=== PATIENT | male | born 1970 | race Caucasian/White ===

== ENCOUNTER → 2016-09-17 | Outpatient (CLI) | payer BC ==
[~2016-09-17] MED LIST: 'TENORMIN50 MG PO; ALLEGRA-D 12 HO1 TER PO; AMOXICILLIN500 M1 PO; ANAPROX DS550 MG PO; CLARITIN10 MG PO; CLINDAMYCIN HC300 MG PO; DAYPRO600 M1 PO; FLONASE ALLERG9.9 ML NAS; KEFLEX500 MG PO; LOSARTAN POTAS100 M1 PO; MEDROL DOSEPAK4 MG PO; MOTRIN800 MG PO; NORVASC10 MG PO; ORPHENADRINE C100 M1 PO; PERCOCET 325 MG1 TA2 PO; PREDNICOT20 MG PO; ROBAXIN750 MG PO; ROBITUSSIN AC 110 ML PO; TYLENOL W/CODEI1 TA2 PO; ULTRAM ER200 MG PO; ULTRAM50 MG PO; VITAMIN D32000 I1 PO; ZITHROMAX Z PA250 MG PO; ZITHROMAX250 MG PO
[2016-09-17 14:00] LABS: BASO # 0.1 10*3/uL (0.0-0.1); BASO % 1.2 % (0.0-1.0); EOS # 0.2 10*3/uL (0.0-0.4); EOS % 2.3 % (1.0-4.0); HEMATOCRIT 43.5 % (42.0-52.0); HEMOGLOBIN 15.1 g/dl (14.0-18.0); IG # 0.1 10*3/uL (0.0-0.1); LYMPH # 3.3 10*3/uL (1.3-4.4); LYMPH % 31.2 % (27.0-41.0); MEAN CELL VOLUME 88.1 fl (80.0-94.0); MEAN CORPUSCULAR HGB 30.6 pg (27.0-31.0); MEAN CORPUSCULAR HGB CONC 34.7 g/dl (33.0-37.0); MEAN PLATELET VOLUME 9.9 fl (9.6-12.3); MONO # 1.1 10*3/uL (0.1-1.0); MONO % 10.7 % (3.0-9.0); NEUT # 5.7 10*3/uL (2.3-7.9); NEUT % 53.7 % (47.0-73.0); PLATELET COUNT AUTOMATED 298 10*3/uL (130-400); RED BLOOD COUNT 4.94 10*6/uL (4.50-5.90); RED CELL DISTRI WIDTH 12.1 % (0-14.5); WHITE BLOOD COUNT 10.6 10*3/uL (4.8-10.8)
[2016-09-17 14:23] LABS: ALBUMIN 4.1 gm/dl (3.1-4.5); ALKALINE PHOSPHATASE 78 U/L (45-117); BILIRUBIN, TOTAL 0.4 mg/dl (0.2-1.0); BUN 9 mg/dl (7-24); CARBON DIOXIDE 30 mmol/L (21-32); CHLORIDE 103 mmol/L (98-107); CHOLESTEROL 124 mg/dL (<200); EST GLOM FILT AFRICAN AMERICAN > 60 ml/min; GLUCOSE 108 mg/dL (65-99); HDL CHOLESTEROL 40 mg/dl (40-60); LDL CHOLESTEROL 37 mg/dL (9-159); SGOT/AST 27 IU/L (3-35); SGPT/ALT 48 U/L (12-78); SODIUM 140 mmol/L (136-145); TOTAL PROTEIN 7.5 gm/dL (6.4-8.2); TRIGLYCERIDES 235 mg/dl (<150); VLDL CHOLESTEROL 47 mg/dL (6-40)
== END | disposition home or self-care (01) ==
LOC: LAB 13:38
PROVIDERS: Nurse Practitioner Family
DX: J44.9 Chronic obstructive pulmonary disease, unspecified (principal); I10 Essential (primary) hypertension; E78.2 Mixed hyperlipidemia

== ENCOUNTER 2017-04-22 16:21 | Emergency (ER) | payer BC ==
[~2017-04-22] VITALS: Ht 177.8 cm; Wt 113.4 kg
[2017-04-22 17:27] LABS: HEMATOCRIT 42.9 % (42.0-52.0); HEMOGLOBIN 15.2 g/dl (14.0-18.0); MEAN CELL VOLUME 88.3 fl (80.0-94.0); MEAN CORPUSCULAR HGB 31.3 pg (27.0-31.0); MEAN CORPUSCULAR HGB CONC 35.4 g/dl (33.0-37.0); MEAN PLATELET VOLUME 9.5 fl (9.6-12.3); PLATELET COUNT AUTOMATED 315 10*3/uL (130-400); RED BLOOD COUNT 4.86 10*6/uL (4.50-5.90); RED CELL DISTRI WIDTH 12.6 % (0-14.5)
[2017-04-22 17:43] LABS: ALBUMIN 3.7 gm/dl (3.1-4.5); ALKALINE PHOSPHATASE 87 U/L (45-117); BUN 13 mg/dl (7-24); CHLORIDE 100 mmol/L (98-107); CREATININE 0.92 mg/dL (0.70-1.30); POTASSIUM 3.7 mmol/L (3.5-5.1); SGOT/AST 30 IU/L (3-35); SGPT/ALT 63 U/L (12-78); SODIUM 138 mmol/L (136-145)
[2017-04-22 17:45] LABS: TROPONIN I < 0.015 ng/ml (<0.045)
[2017-04-22 18:03] LABS: TOTAL CELLS COUNTED 100 #CELLS
[2017-04-22 18:04] LABS: PLATELET SUFFICIENCY NORMAL (NORMAL)
[2017-04-22] MEDS ORDERED: PREDNISONE10 MG PO (18:08)
[2017-04-22] MEDS ORDERED: LEVOFLOXACIN500 MG PO (18:08)
== END 2017-04-22 18:12 | disposition home or self-care (01) ==
LOC: ED 16:21
PROVIDERS: Physician Assistant
DX: J40 Bronchitis, not specified as acute or chronic (principal); F17.200 Nicotine dependence, unspecified, uncomplicated; Z79.899 Other long term (current) drug therapy

== ENCOUNTER 2017-05-11 21:06 | Emergency (ER) | payer BC ==
[~2017-05-11] VITALS: Wt 113.4 kg
[~2017-05-11 21:06] MED LIST changes: +LEVOFLOXACIN500 MG PO; +PREDNISONE10 MG PO
[2017-05-11] MEDS ORDERED: AUGMENTIN 875-875 MG PO (22:40)
[2017-05-11] MEDS ORDERED: FLONASE ALLERG9.9 ML NAS (22:41)
== END 2017-05-11 22:44 | disposition home or self-care (01) ==
LOC: ED 21:06
DX: H65.93 Unspecified nonsuppurative otitis media, bilateral (principal); J06.9 Acute upper respiratory infection, unspecified; G89.29 Other chronic pain; F17.200 Nicotine dependence, unspecified, uncomplicated; Z90.49 Acquired absence of other specified parts of digestive tract; Z79.899 Other long term (current) drug therapy

== ENCOUNTER 2017-05-21 13:01 | Emergency (ER) | payer BC ==
[~2017-05-21] VITALS: Ht 177.8 cm; Wt 113.4 kg
[~2017-05-21 13:01] MED LIST changes: +AUGMENTIN 875-875 MG PO
[2017-05-21 13:55] LABS: BASO # 0.1 10*3/uL (0.0-0.1); BASO % 1.1 % (0.0-1.0); EOS # 0.3 10*3/uL (0.0-0.4); EOS % 2.9 % (1.0-4.0); HEMATOCRIT 42.7 % (42.0-52.0); LYMPH % 32.9 % (27.0-41.0); MEAN CELL VOLUME 87.1 fl (80.0-94.0); MEAN CORPUSCULAR HGB 30.6 pg (27.0-31.0); MEAN CORPUSCULAR HGB CONC 35.1 g/dl (33.0-37.0); MEAN PLATELET VOLUME 9.6 fl (9.6-12.3); MONO # 1.2 10*3/uL (0.1-1.0); MONO % 12.9 % (3.0-9.0); NEUT # 4.5 10*3/uL (2.3-7.9); NEUT % 49.2 % (47.0-73.0); PLATELET COUNT AUTOMATED 301 10*3/uL (130-400); RED CELL DISTRI WIDTH 12.3 % (0-14.5); WHITE BLOOD COUNT 9.1 10*3/uL (4.8-10.8)
[2017-05-21 14:10] LABS: ALBUMIN 3.9 gm/dl (3.1-4.5); ALKALINE PHOSPHATASE 81 U/L (45-117); BUN 10 mg/dl (7-24); CHLORIDE 103 mmol/L (98-107); CREATININE 0.84 mg/dL (0.70-1.30); SGOT/AST 22 IU/L (3-35); SGPT/ALT 37 U/L (12-78); SODIUM 139 mmol/L (136-145); TOTAL PROTEIN 7.4 gm/dL (6.4-8.2)
[2017-05-21] MEDS ORDERED: PROAIR HFA8.5 GM INH (15:06)
[2017-05-21] MEDS ORDERED: PREDNISONE20 M1 PO (15:06)
== END 2017-05-21 15:33 | disposition home or self-care (01) ==
LOC: ED 13:01
PROVIDERS: Nurse Practitioner Family
DX: J44.1 Chronic obstructive pulmonary disease with (acute) exacerbation (principal); F17.200 Nicotine dependence, unspecified, uncomplicated; Z90.49 Acquired absence of other specified parts of digestive tract; Z79.899 Other long term (current) drug therapy

== ENCOUNTER → 2018-08-10 | Outpatient (CLI) | payer BC ==
[~2018-08-10] MED LIST changes: +PREDNISONE20 M1 PO; +PROAIR HFA8.5 GM INH
== END | disposition home or self-care (01) ==
LOC: LAB 00:33
DX: E74.9 Disorder of carbohydrate metabolism, unspecified (principal)

== ENCOUNTER 2019-01-15 16:38 | Emergency (ER) | payer BC ==
[~2019-01-15] VITALS: Ht 175.2 cm; Wt 106.6 kg
[2019-01-15 17:07] LABS: BILIRUBIN NEGATIVE (NEGATIVE); BLOOD NEGATIVE (NEGATIVE); CLARITY SL CLOUDY (CLEAR); COLOR YELLOW (YELLOW); GLUCOSE NEGATIVE (NEGATIVE); KETONE NEGATIVE (NEGATIVE); LEUKO ESTERASE NEGATIVE (NEGATIVE); NITRITE NEGATIVE (NEGATIVE); UROBILINOGEN 0.2 E.U./dl (0.2-1.0)
[2019-01-15 17:19] LABS: BACTERIA TRACE; EPITHELIAL CELLS 0-2; RBC 0-2 rbc/hpf (0-2); WBC 0-2 wbc/hpf (0-5)
[2019-01-15 17:43] LABS: HEMOGLOBIN 14.5 g/dl (14.0-18.0); MEAN CELL VOLUME 90.3 fl (80.0-94.0); MEAN CORPUSCULAR HGB 31.2 pg (27.0-31.0); MEAN CORPUSCULAR HGB CONC 34.5 g/dl (33.0-37.0); MEAN PLATELET VOLUME 10.2 fl (9.6-12.3); PLATELET COUNT AUTOMATED 264 10*3/uL (130-400); RED BLOOD COUNT 4.65 10*6/uL (4.50-5.90); RED CELL DISTRI WIDTH 12.7 % (0-14.5); WHITE BLOOD COUNT 24.9 10*3/uL (4.8-10.8)
[2019-01-15 17:59] LABS: ALBUMIN 3.7 gm/dl (3.1-4.5); ALKALINE PHOSPHATASE 60 U/L (45-117); BUN 10 mg/dl (7-24); CHLORIDE 101 mmol/L (98-107); CREATININE 1.02 mg/dL (0.70-1.30); LIPASE 82 U/L (73-393); POTASSIUM 3.4 mmol/L (3.5-5.1); SGOT/AST 13 IU/L (3-35); SGPT/ALT 24 U/L (12-78); SODIUM 135 mmol/L (136-145); TOTAL PROTEIN 7.1 gm/dL (6.4-8.2)
[2019-01-15 18:03] LABS: BASOPHILS 2 % (0-1); PLATELET SUFFICIENCY NORMAL (NORMAL); TOTAL CELLS COUNTED 100 #CELLS
[2019-01-15] MEDS ORDERED: FLAGYL500 MG PO (19:29)
[2019-01-15] MEDS ORDERED: CIPRO500 MG PO (19:29)
[2019-02-07] MEDS ORDERED: LOSARTAN-HCTZ1 EAC1 PO (12:27)
== END 2019-01-15 19:57 | disposition home or self-care (01) ==
LOC: ED 16:38
PROVIDERS: Physician Assistant
DX: K52.9 Noninfective gastroenteritis and colitis, unspecified (principal); Z79.2 Long term (current) use of antibiotics; Z79.899 Other long term (current) drug therapy; Z90.49 Acquired absence of other specified parts of digestive tract; Z87.891 Personal history of nicotine dependence

== ENCOUNTER → 2019-02-11 | Day surgery (SDC) | payer BC ==
[~2019-02-11] VITALS: Ht 177.8 cm; Wt 106.6 kg
[~2019-02-11] MED LIST changes: +CIPRO500 MG PO; +FLAGYL500 MG PO; +LOSARTAN-HCTZ1 EAC1 PO
--- NOTE | ~2019-02-11 | O ---
[place], [place] OPERATIVE NOTE NAME: KALI DANIELS III UNIT #: [id number] ROOM: DOCTOR: JAILENE MAC MD BIRTHDATE: [birth year] DOS: 02/11/2019 GASTROENDOSCOPIC REPORT INDICATIONS: This is a 48-year-old patient who has presented with right lower quadrant pain. Positive for suspected colitis, has been treated with ciprofloxacin and Flagyl. ALLERGIES: No known medication. FAMILY HISTORY: Uncle and father with colon carcinoma. PAST SURGICAL HISTORY: Appendectomy and tonsillectomy. PAST MEDICAL HISTORY: Hypertension, diabetes mellitus. SOCIAL HISTORY: Two pack smoker and nonalcohol consumer. PROCEDURE: Today's procedure part of investigation is colonoscopy. PREMEDICATION: Propofol. SCOPE: Olympus forward-viewing colonoscope 10L video. REPORT: After putting the patient in left lateral position and application of lubricant to the scope, the scope was introduced. Thereafter, under direct visualization, advanced through the length of colon with some difficulty. Difficulty being retained stool throughout the length of the colon essentially after the splenic flexure all along the ascending colon with great difficulty and washing the tissue away from the stool, I was trying to obtain at least a general assessment of the colon. I did not find any acute fungating mass in the colon in the midst of the stool, however, visualization was limited to 50% and I looked in the ascending colon washed as much as possible. The patient extubated, tolerated the procedure well. IMPRESSION: Sessile polypoid lesion in sigmoid colon very small status post piecemeal polypectomy. Otherwise, retained stool throughout the length of colon. PLAN AND DISCUSSION: I am going to discuss with the patient to see if he would be amenable to repeat colonoscopy or barium enema and we will rediscussed again. [place], [place] OPERATIVE NOTE NAME: KALI DANIELS III UNIT #: [id number] ROOM: DOCTOR: JAILENE MAC MD BIRTHDATE: [birth year] JAILENE MAC MD CM:OPRECORD:OPERATIVE NOTE 1230 [id number] JAILENE MAC MD 02/11/19 1354 interface
[2019-02-11 11:20] VITALS: BP 154/87
[2019-02-11 12:21] VITALS: BP 105/64
[2019-02-11 12:36] VITALS: BP 120/79
[2019-02-11 12:50] VITALS: BP 116/75
--- NOTE | 2019-02-11 12:58 | NUR ---
IV FLUIDS DISCONTINUED IN RECOVERY AT 1252
== END | disposition home or self-care (01) ==
LOC: SDC 02-08 09:30
DX: K63.5 Polyp of colon (principal); K59.00 Constipation, unspecified; K62.5 Hemorrhage of anus and rectum; I10 Essential (primary) hypertension; E11.9 Type 2 diabetes mellitus without complications; I25.118 Atherosclerotic heart disease of native coronary artery with other forms of angina pectoris; F32.9 Major depressive disorder, single episode, unspecified; J44.9 Chronic obstructive pulmonary disease, unspecified; E78.00 Pure hypercholesterolemia, unspecified; F17.210 Nicotine dependence, cigarettes, uncomplicated; E66.9 Obesity, unspecified; Z79.899 Other long term (current) drug therapy; Z98.890 Other specified postprocedural states; Z80.0 Family history of malignant neoplasm of digestive organs; Z83.3 Family history of diabetes mellitus; Z82.49 Family history of ischemic heart disease and other diseases of the circulatory system

== ENCOUNTER → 2019-08-20 | Outpatient (CLI) | payer BC ==
[2019-08-20 17:21] LABS: HEMATOCRIT 45.4 % (42.0-52.0); MEAN CELL VOLUME 90.3 fl (80.0-94.0); MEAN CORPUSCULAR HGB CONC 34.4 g/dl (33.0-37.0); MEAN PLATELET VOLUME 9.6 fl (9.6-12.3); PLATELET COUNT AUTOMATED 296 10*3/uL (130-400); RED BLOOD COUNT 5.03 10*6/uL (4.50-5.90); RED CELL DISTRI WIDTH 12.5 % (0-14.5); WHITE BLOOD COUNT 10.6 10*3/uL (4.8-10.8)
[2019-08-20 17:49] LABS: ALBUMIN 3.9 gm/dl (3.1-4.5); ALKALINE PHOSPHATASE 69 U/L (45-117); BUN 16 mg/dl (7-24); CHLORIDE 102 mmol/L (98-107); CHOLESTEROL 180 mg/dL (<200); CREATININE 0.86 mg/dL (0.70-1.30); HDL CHOLESTEROL 33 mg/dl (40-60); POTASSIUM 3.9 mmol/L (3.5-5.1); SGOT/AST 24 IU/L (3-35); SGPT/ALT 33 U/L (12-78); SODIUM 136 mmol/L (136-145); TOTAL PROTEIN 7.6 gm/dL (6.4-8.2); TRIGLYCERIDES 469 mg/dl (<150)
[2019-08-20 17:50] LABS: BASOPHILS 1 % (0-1); PLATELET SUFFICIENCY NORMAL (NORMAL); TOTAL CELLS COUNTED 100 #CELLS
== END ==
LOC: LAB 17:03
PROVIDERS: Family Medicine
DX: I10 Essential (primary) hypertension (principal); E78.9 Disorder of lipoprotein metabolism, unspecified; E78.00 Pure hypercholesterolemia, unspecified; E55.9 Vitamin D deficiency, unspecified

== ENCOUNTER → 2019-08-24 | Outpatient (CLI) | payer BC | END | disposition home or self-care (01) | LOC: LAB 14:53 | PROVIDERS: Family Medicine | DX: J43.9 Emphysema, unspecified (principal); R53.83 Other fatigue; M25.50 Pain in unspecified joint; F17.210 Nicotine dependence, cigarettes, uncomplicated ==

== ENCOUNTER 2019-10-31 19:38 | Emergency (ER) | payer BC ==
[~2019-10-31] VITALS: Ht 177.8 cm; Wt 113.4 kg
[2019-10-31 21:07] LABS: BASO # 0.1 10*3/uL (0.0-0.1); BASO % 0.5 % (0.0-1.0); EOS % 0.1 % (1.0-4.0); HEMATOCRIT 42.9 % (42.0-52.0); LYMPH # 0.8 10*3/uL (1.3-4.4); MEAN CELL VOLUME 88.5 fl (80.0-94.0); MEAN CORPUSCULAR HGB 30.3 pg (27.0-31.0); MEAN CORPUSCULAR HGB CONC 34.3 g/dl (33.0-37.0); MONO # 0.7 10*3/uL (0.1-1.0); MONO % 4.2 % (3.0-9.0); NEUT # 14.8 10*3/uL (2.3-7.9); NEUT % 89.5 % (47.0-73.0); PLATELET COUNT AUTOMATED 285 10*3/uL (130-400); RED BLOOD COUNT 4.85 10*6/uL (4.50-5.90); RED CELL DISTRI WIDTH 12.1 % (0-14.5); WHITE BLOOD COUNT 16.6 10*3/uL (4.8-10.8)
[2019-10-31 21:23] LABS: ALBUMIN 3.6 gm/dl (3.1-4.5); ALKALINE PHOSPHATASE 68 U/L (45-117); BUN 14 mg/dl (7-24); CHLORIDE 100 mmol/L (98-107); LIPASE 75 U/L (73-393); POTASSIUM 3.5 mmol/L (3.5-5.1); SGOT/AST 27 IU/L (3-35); SGPT/ALT 31 U/L (12-78); SODIUM 132 mmol/L (136-145); TOTAL PROTEIN 7.7 gm/dL (6.4-8.2)
[2019-10-31 21:32] LABS: BILIRUBIN NEGATIVE (NEGATIVE); BLOOD 1+ (NEGATIVE); CLARITY CLEAR (CLEAR); COLOR YELLOW (YELLOW); GLUCOSE TRACE (NEGATIVE); KETONE NEGATIVE (NEGATIVE); PH 6.5 (5.0-9.0); SPECIFIC GRAVITY 1.015 (1.005-1.030)
[2019-10-31 21:33] LABS: UROBILINOGEN 0.2 E.U./dl (0.2-1.0)
[2019-10-31 21:34] LABS: NITRITE NEGATIVE (NEGATIVE)
[2019-10-31 21:35] LABS: LEUKO ESTERASE NEGATIVE (NEGATIVE)
[2019-10-31 21:39] LABS: BACTERIA TRACE
[2019-10-31 21:40] LABS: MUCOUS 1+
[2019-11-01] MEDS ORDERED: DICYCLOMINE HCL10 MG PO (01:47)
== END 2019-11-01 02:00 | disposition home or self-care (01) ==
LOC: ED 19:38
PROVIDERS: Emergency Medicine; Nurse Practitioner Family
DX: R19.7 Diarrhea, unspecified (principal); R10.31 Right lower quadrant pain; J44.9 Chronic obstructive pulmonary disease, unspecified; F17.200 Nicotine dependence, unspecified, uncomplicated; Z79.899 Other long term (current) drug therapy

== ENCOUNTER 2019-12-10 19:41 | Emergency (ER) | payer BC ==
[~2019-12-10] VITALS: Ht 177.8 cm; Wt 111.1 kg
[~2019-12-10 19:41] MED LIST changes: +DICYCLOMINE HCL10 MG PO
== END 2019-12-10 21:28 | disposition home or self-care (01) ==
LOC: ED 19:41
DX: S82.402A Unspecified fracture of shaft of left fibula, initial encounter for closed fracture (principal); Z79.899 Other long term (current) drug therapy; X58.XXXA Exposure to other specified factors, initial encounter; Y93.89 Activity, other specified; Y92.89 Other specified places as the place of occurrence of the external cause; Y99.8 Other external cause status

== ENCOUNTER → 2020-01-23 | Outpatient (CLI) | payer BC | END | disposition home or self-care (01) | LOC: ORTHO 13:57 | PROVIDERS: ATTEND Orthopaedic Surgery | DX: S82.422D Displaced transverse fracture of shaft of left fibula, subsequent encounter for closed fracture with routine healing (principal); X58.XXXD Exposure to other specified factors, subsequent encounter ==

== ENCOUNTER → 2020-10-06 | Outpatient (CLI) | payer BC | END | disposition home or self-care (01) | LOC: LAB 09:23 | PROVIDERS: ATTEND Family Medicine | DX: E83.52 Hypercalcemia (principal); R73.01 Impaired fasting glucose ==

== ENCOUNTER → 2021-05-27 | Outpatient (CLI) | payer BC | END | disposition home or self-care (01) | LOC: ORTHO 01:45 | PROVIDERS: ATTEND Orthopaedic Surgery | DX: M17.11 Unilateral primary osteoarthritis, right knee (principal) ==

== ENCOUNTER 2021-10-10 15:12 | Emergency (ER) | payer BC ==
[~2021-10-10] VITALS: Wt 111.1 kg
[2021-10-10] MEDS ORDERED: NAPROSYN500 MG PO (17:21)
== END 2021-10-10 17:34 | disposition home or self-care (01) ==
LOC: ED 15:12
DX: S83.91XA Sprain of unspecified site of right knee, initial encounter (principal); Z79.899 Other long term (current) drug therapy; Z90.49 Acquired absence of other specified parts of digestive tract; Z90.89 Acquired absence of other organs; Z98.890 Other specified postprocedural states; X58.XXXA Exposure to other specified factors, initial encounter; Y93.89 Activity, other specified; Y92.89 Other specified places as the place of occurrence of the external cause; Y99.8 Other external cause status

== ENCOUNTER 2023-08-21 17:53 | Emergency (ER) | payer BC ==
[~2023-08-21] VITALS: Ht 175.2 cm; Wt 113.4 kg
[~2023-08-21 17:53] MED LIST changes: +NAPROSYN500 MG PO
[2023-08-21] MEDS ORDERED: BUPRENORPHINE-1 EAC1 SL (18:24)
[2023-08-21] MEDS ORDERED: Amoxicillin/Clavulanate Pota 875 MG TAB PO ONE (18:30)
[2023-08-21] MEDS ORDERED: Acetaminophen/Oxycodone 5 MG/325 MG TABLET PO ONE (18:30)
[2023-08-21] MEDS ORDERED: AMOX-CLAV 875-1 EACH PO (18:33)
[2023-08-21] MEDS ORDERED: MELOXICAM15 MG PO (18:33)
== END 2023-08-21 18:38 | disposition home or self-care (01) ==
LOC: ED 17:53
DX: K04.7 Periapical abscess without sinus (principal); K02.9 Dental caries, unspecified; J44.9 Chronic obstructive pulmonary disease, unspecified; I10 Essential (primary) hypertension; E11.9 Type 2 diabetes mellitus without complications; F32.A Depression, unspecified; E78.00 Pure hypercholesterolemia, unspecified; Z90.49 Acquired absence of other specified parts of digestive tract; Z95.5 Presence of coronary angioplasty implant and graft; Z98.890 Other specified postprocedural states; F17.200 Nicotine dependence, unspecified, uncomplicated

== ENCOUNTER → 2024-05-16 | Outpatient (CLI) | payer SELFPAY ==
[~2024-05-16] MED LIST changes: +AMOX-CLAV 875-1 EACH PO; +BUPRENORPHINE-1 EAC1 SL; +MELOXICAM15 MG PO
== END | disposition home or self-care (01) ==
LOC: LAB 10:30
PROVIDERS: ATTEND Family Medicine
DX: E11.9 Type 2 diabetes mellitus without complications (principal)